=== PATIENT | male | born 2000 | race Two or more races ===

== ENCOUNTER 2023-11-09 23:10 | Emergency (ER) | payer MEDICAID, OTHER ==
[~2023-11-09] VITALS: Ht 175.3 cm; Wt 81.0 kg
[2023-11-09 23:10] VITALS: BP 119/74; PULSE 66; RESP 18; TEMP 98.2
[2023-11-10] MEDS ORDERED: CYCL-837 PO (01:28)
[2023-11-10] MEDS ORDERED: IBUP-1455 PO (01:28)
[2023-11-10 01:55] VITALS: O2SAT 97
== END 2023-11-10 02:00 | disposition home or self-care (01) ==
LOC: ER 23:10
DX: M54.6 Pain in thoracic spine (principal); X50.1XXA Overexertion from prolonged static or awkward postures, initial encounter; Y93.89 Activity, other specified; Y92.89 Other specified places as the place of occurrence of the external cause; Y99.8 Other external cause status